=== PATIENT | male | born 1955 | race Caucasian/White ===

== ENCOUNTER 2020-08-02 12:03 | Emergency (ER) | payer OTHER, SELFPAY ==
[2020-08-02 12:05] VITALS: BP 136/93; PULSE 73; RESP 18; TEMP 36.4; O2SAT 96; BMI 24.3
[2020-08-02 12:11] VITALS: RESP 15
[2020-08-02 12:29] LABS: Basophils # 0.1 10^3/uL (0.0-0.1); Basophils % 0.7 %; Eosinophils # 0.1 10^3/uL (0.0-0.8); Eosinophils % 1.8 %; Hematocrit 53.9 % (42.0-52.0); Hemoglobin 17.5 g/dL (11.7-16.6); Lymphocytes # 0.9 10^3/uL (0.8-4.8); Lymphocytes % 12.8 %; Mean Corpuscular HGB Conc 32.5 g/dL (30.0-36.0); Mean Corpuscular Hemoglobin 29.8 pg (28.0-34.0); Mean Corpuscular Volume 91.7 fL (80-94); Mean Platelet Volume 10.1 fL (7.4-10.4); Monocytes # 0.5 10^3/uL (0.2-0.9); Neutrophils # 5.52 10^3/uL (1.8-7.7); Neutrophils % 77.4 %; Nucleated Red Blood Cells % 0 %; Platelet Count 243 10^3/cmm (130-400); Red Blood Count 5.88 10^6/uL (4.1-5.3); Red Cell Distribution Width 12.9 % (12.1-15.1); White Blood Count 7.1 10^3/uL (4.0-10.0)
[2020-08-02] MEDS: sodium chloride 0.9% 500 ML 999 ML IV ×2 (12:30→13:20)
--- NOTE | 2020-08-02 12:34 | CT_ITS ---
WS: [id number] CT ABDOMEN PELVIS TECHNIQUE: Contrast-enhanced CT of the abdomen and pelvis with coronal and sagittal reformatted image s. CLINICAL INFORMATION: abd pain COMPARISON: [id number] DLP: 1465.[address] scans at [facility] use at least one of these dose optimization techniques: automat ed exposure control; mA and/or kV adjustment per patient size (includes targeted exams where dose is matched to clinical indication); or iterative reconstruction. FINDINGS: Diffuse fatty infiltration of the liver. Normal portal vein and splenic vein. Normal gallbladder. Nor mal spleen. Lung bases are well aerated. Calcified granuloma left lower lobe. Normal GE junction. Adr enal glands are normal. Normal renal parenchymal enhancement. No hydronephrosis. Right renal cyst rachelle suring 2.1 CM. Normal portal vein and splenic vein. Normal caliber abdominal aorta. Prostate enlarge ment measuring 5.3 CM. Sigmoid diverticulosis with mild sigmoid colon thickening can be seen with early or mild diverticulit is. No evidence of small or large bowel obstruction. No free fluid in the abdomen or pelvis. Fat-cont aining left inguinal hernia. Incidental fat-containing umbilical hernia. CT/CT abdomen pelvis w con* [id number] IMPRESSION: 1. Slight sigmoid thickening can be seen with early or mild acute diverticulit is. 2. No evidence of small or large bowel obstruction. 3. No free fluid in the abdomen or pelvis. 4. Mild diffuse fatty infiltration liver. 5. Small right renal cyst measuring 2.1 CM. 6. Prostate enlargement. Recommend correlation PSA.
--- NOTE | 2020-08-02 12:42 | ED_ITS ---
HPI - Nausea/Vomiting/Diarrhea General: Chief complaint: Nausea/Vomiting/Diarrhea Stated complaint: N/V, UNABLE TO KEEP ANYTHING DOWN,[facility] Time Seen by Provider: 08/02/20 12:05 History of Present Illness: HPI Narrative: 64-year-old male comes in [facility] of nausea and vomiting that began yesterday. He states he vomits pretty much anything he attempts to eat. He denies any abdominal pain denies any diarrhea constipation no fever no dysuria urgency or frequency no hematuria. MD elicited complaint: nausea and vomiting Onset (ago): day(s) Description of vomiting: watery Associated nausea: Yes Associated abdominal pain: No Location of pain: None Exacerbating factors: none Relieving factors: none Associated symtoms: Reports anorexia and nausea; Denies altered mental status, anxiety, bloating, change in vision, chest pain, cough, diaphoresis, decreased urine output, dizziness, dysuria, epistaxis, fatigue, fecal incontinence, fevers/chills, headache(s), malaise, myalgias, numbness, palpitations, rash, short of breath, syncope, tenesmus, tinnitus or weakness Review of Systems Const: Denies: fatigue, malaise or diaphoresis Eyes: Denies: change in vision ENMT: Denies: tinnitus or epistaxis Card: Denies: chest pain, palpitations or syncope Resp: Denies: dyspnea, productive cough or non-productive cough GI: Reports: nausea; Denies: bloating or fecal incontinence : Denies: dysuria Skin/Breast: Denies: rash or pruritus Neuro: Denies: headache(s) or dizziness Psych: Denies: anxiety PFSH ED PFSH: Social History Smoking and tobacco status: former smoker Physical Exam Const: COMMON NORMALS: no acute distress EXAM LIMITATIONS: no altered mental status GENERAL APPEARANCE: cooperative and comfortable ORIENTATION/CONSCIOUSNESS: Yes awake, Yes oriented to person, Yes oriented to place and Yes oriented to time HENMT: COMMON NORMALS: normocephalic, atraumatic, hearing grossly normal bilaterally and external ears normal HEAD & SCALP: normocephalic and atraumatic EXTERNAL EAR: Yes external ears normal Neck/C-Spine: COMMON NORMALS: no JVD Resp: COMMON NORMALS: normal respiratory effort, No retractions, No use of accessory muscles and clear to auscultation bilaterally AUSCULTATION: clear to auscultation bilaterally Cardio: COMMON NORMALS: no JVD, regular rate, regular rhythm and No murmurs present (Cardio) RATE: regular rate RHYTHM: regular rhythm GI: COMMON NORMALS: Soft to palpation and No hepatosplenomegaly present AUSCULTATION: Yes normoactive bowel sounds PALPATION: Yes Soft to palpation, No Tenderness to palpation present (GI), No Guarding due to palpation present (GI) and Yes No hepatosplenomegaly present Extremity: COMMON NORMALS: normal to inspection, capillary refill normal, no clubbing, cyanosis or edema, no calf tenderness and no pedal edema Neuro: SENSORIUM/ORIENTATION: Yes oriented to person, Yes oriented to place and Yes oriented to time Skin: COMMON NORMALS: no rashes or lesions noted GENERAL SKIN EXAM: no rashes or lesions noted Course Vital Signs: Vital signs: Vital Signs Temperature 97.5 F L 08/02/20 12:05 Pulse Rate 80 08/02/20 15:01 Respiratory Rate 15 08/02/20 15:01 Blood Pressure 138/90 08/02/20 15:01 Pulse Oximetry 96 08/02/20 15:01 MDM - Nausea/Vomiting/Diarrhea MDM Narrative: Medical decision making narrative: CT showed mild diverticulitis is otherwise is unremarkable. Remainder of his labs are also unremarkable other than he is a little bit polycythemic. We will go ahead and start him on Cipro and Flagyl gave him ondansetron orally dissolving tablets. Clear liquid diet for 48 hours and advance if not improving may need to have EGD. Lab Data: Labs: Lab Results 08/02/20 08/02/20 08/02/20 Range/Units 12:20 12:20 13:02 WBC 7.1 (4.0-10.0) 10^3/ uL RBC 5.88 H (4.1-5.3) 10^6/u L Hgb 17.5 H (11.7-16.6) g/dL Hct 53.9 H (42.0-52.0) % MCV 91.7 (80-94) fL MCH 29.8 (28.0-34.0) pg MCHC 32.5 (30.0-36.0) g/dL RDW 12.9 (12.1-15.1) % Plt Count 243 (130-400) 10^3/c mm MPV 10.1 (7.4-10.4) fL Neut % (Auto) 77.4 % Lymph % (Auto) 12.8 % Callahan % (Auto) 7.0 % Eos % (Auto) 1.8 % Baso % (Auto) 0.7 % Neut # (Auto) 5.52 (1.8-7.7) 10^3/u L Lymph # (Auto) 0.9 (0.8-4.8) 10^3/u L Callahan # (Auto) 0.5 (0.2-0.9) 10^3/u L Eos # (Auto) 0.1 (0.0-0.8) 10^3/u L Baso # (Auto) 0.1 (0.0-0.1) 10^3/u L Nucleated RBC % (a uto) 0 % Nucleated RBCs # 0.0 /100WBC Sodium Cancelled 141 Potassium Cancelled 4.4 Chloride Cancelled 104 Carbon Dioxide Cancelled 27 Anion Gap Cancelled 14.4 BUN Cancelled 18 Creatinine Cancelled 0.9 GFR Calculation Cancelled 85.5 L Glucose Cancelled 93 Calculated Osmolal ity Cancelled 294 Calcium Cancelled 9.4 Total Bilirubin Cancelled 0.4 AST Cancelled 29 ALT Cancelled 34 Alkaline Phosphata se Cancelled 63 Creatine Kinase Cancelled 116 Total Protein Cancelled 6.7 Albumin Cancelled 4.3 Globulin Cancelled 2.4 Lipase Cancelled 17 Urine Color (Yellow) Urine Appearance (CLEAR) Urine pH (5-7) Ur Specific Gravit y (1.005-1.030) Urine Protein (Negative) Urine Glucose (UA) (Normal) Urine Ketones (Negative) Urine Blood (Negative) Urine Nitrate (Negative) Urine Bilirubin (Negative) Urine Urobilinogen (Negative) mg/dL Ur Leukocyte Ramona ase (Negative) 08/02/20 Range/Units 13:10 WBC (4.0-10.0) 10^3/ uL RBC (4.1-5.3) 10^6/u L Hgb (11.7-16.6) g/dL Hct (42.0-52.0) % MCV (80-94) fL MCH (28.0-34.0) pg MCHC (30.0-36.0) g/dL RDW (12.1-15.1) % Plt Count (130-400) 10^3/c mm MPV (7.4-10.4) fL Neut % (Auto) % Lymph % (Auto) % Callahan % (Auto) % Eos % (Auto) % Baso % (Auto) % Neut # (Auto) (1.8-7.7) 10^3/u L Lymph # (Auto) (0.8-4.8) 10^3/u L Callahan # (Auto) (0.2-0.9) 10^3/u L Eos # (Auto) (0.0-0.8) 10^3/u L Baso # (Auto) (0.0-0.1) 10^3/u L Nucleated RBC % (a uto) % Nucleated RBCs # /100WBC Sodium Potassium Chloride Carbon Dioxide Anion Gap BUN Creatinine GFR Calculation Glucose Calculated Osmolal ity Calcium Total Bilirubin AST ALT Alkaline Phosphata se Creatine Kinase Total Protein Albumin Globulin Lipase Urine Color Yellow (Yellow) Urine Appearance Clear (CLEAR) Urine pH 6.5 (5-7) Ur Specific Gravit y 1.020 (1.005-1.030) Urine Protein Neg (Negative) Urine Glucose (UA) Norm (Normal) Urine Ketones 1+ H (Negative) Urine Blood Neg (Negative) Urine Nitrate Negative (Negative) Urine Bilirubin Neg (Negative) Urine Urobilinogen 1 H (Negative) mg/dL Ur Leukocyte Ramona ase Negative (Negative) Discharge Plan Discharge Patient Disposition: Home Clinical Impression: Diverticulitis, Nausea & vomiting Condition: Stable Prescriptions: New ondansetron 4 mg tablet,disintegrating 4 mg PO Q6H PRN (Reason: nausea and vomiting) Qty: 20 RF: 0 Cipro 500 mg tablet 500 mg PO BID Qty: 20 RF: 0 Flagyl 500 mg tablet 500 mg PO BID 7 Days Qty: 14 RF: 0 No Action Prema-Marion Plus See Rx Instructions .ROUTE .COMPLEX RF: 0 albuterol sulfate 90 mcg/actuation Hfa Aerosol Inhaler 1 puff INHALATION DAILY RF: 0 albuterol sulfate See Rx Instructions .ROUTE .COMPLEX RF: 0 Discharge Orders: Discharge ED (Routine); Ordered 08/02/20 Ordered By: Du Mondragon Discharge Diet: Clear Liquid Discharge Activity: Increase activity as tolerated Patient Instructions: Opioid Safety Activity Restrictions/Additional Instructions: Clear liquid diet for the next 24 to 48 hours. Take small amounts of food with antibiotics such as crackers or toast. Follow-up with your primary care doctor. On the CT the radiologist mention enlarged prostate you should follow-up with this with your primary care doctor. Coding Level of Care Code ED Dental Detail Representative for Chg Fwd Exam Comprehensive
[2020-08-02 13:13] LABS: Add Urine Microscopic? NO; Charge for UA Resulting for Rev
[2020-08-02 13:17] LABS: Bilirubin Urine Neg (Negative); Blood Urine Neg (Negative); Glucose Urine UA Norm (Normal); Ketones Urine 1+ (Negative); Leukocyte Esterase Urine Negative (Negative); Nitrate Urine Negative (Negative); Protein Urine Neg (Negative); Urine Appearance Clear (CLEAR); Urine Color Yellow (Yellow); Urobilinogen Urine 1 mg/dL (Negative); pH Urine 6.5 (5-7)
[2020-08-02 13:31] LABS: Alanine Aminotransferase 34 U/L (0-41); Albumin Level 4.3 g/dL (3.5-5.2); Alkaline Phosphatase 63 IU/L (40-130); Anion Gap 14.4 (5-19); Aspartate Amino Transferase 29 U/L (0-40); Blood Urea Nitrogen 18 mg/dL (8-23); Calcium 9.4 mg/dL (8.5-10.5); Carbon Dioxide 27 mmol/L (22-29); Chloride 104 mmol/L (98-107); Creatine Phosphokinase 116 U/L (39-308); Globulin 2.4 g/dL (1.3-4.6); Glomerular Filtration Rate 85.5 mL/min (90-130); Glucose 93 mg/dL (65-115); Lipase 17 U/L (13-60); Osmolality Calculated 294 mOsm/kg (285-295); Potassium 4.4 mmol/L (3.5-5.1); Sodium 141 mmol/L (136-145); Total Bilirubin 0.4 mg/dL (0.15-1.2); Total Protein 6.7 g/dL (6.6-8.7)
[2020-08-02] MEDS: iohexol 300 mg/mL 100 mL Btl IV (13:43)
[2020-08-02 14:59] VITALS: BP 138/90; PULSE 80; RESP 15; O2SAT 96
[2020-08-02 15:01] VITALS: BP 138/90; PULSE 80; RESP 15; O2SAT 96
== END 2020-08-02 15:02 | disposition home or self-care (01) ==
PROVIDERS: Emergency Provider Family Medicine
DX: K57.92 Diverticulitis of intestine, part unspecified, without perforation or abscess without bleeding (principal); Z87.891 Personal history of nicotine dependence
CPT/HCPCS: 74177; 80053; 81003; 82550; 83690; 85025; 99284; J7040; Q9967

== ENCOUNTER → 2023-07-07 13:14 | Outpatient (BNVA) | payer OTHER, SELFPAY | PROVIDERS: Visit Provider Surgery | DX: K40.90 Unilateral inguinal hernia, without obstruction or gangrene, not specified as recurrent (principal); D58.2 Other hemoglobinopathies | CPT/HCPCS: 36415; 83036; 99204 ==

== ENCOUNTER 2023-07-27 06:23 | Day surgery (SDC) | payer OTHER, SELFPAY ==
[2023-07-27] VITALS (12 sets, daily range): BP systolic 99–130; BP diastolic 66–86; PULSE 50–77; RESP 15–20; TEMP 36.1–36.4; O2SAT 94–98; BMI 23.8
--- NOTE | 2023-07-27 05:51 | P.HPUD_ITS ---
Surgery/Procedure H&P Update DATE OF PROCEDURE: July 27, 2023 DATE H&P PERFORMED: 07/07/23 H&P UPDATE INFORMATION: I have reviewed H&P completed within last 30 days, I have examined patient prior to procedure, No changes to prior documentation and H&P is in [facility] [place] [facility] EMR on date indicated PLANNED PROCEDURE: Operation Date: 07/27/23 08:10 Proposed Procedures p Laparoscopic Inguinal Hernia Repair w/Mesh/ [place] [id number], K46.9(Left) - Mac Erickson MD
[2023-07-27] MEDS: sodium chloride 0.9% 1,000 ML 30 ML IV (07:23)
[2023-07-27 07:25] LABS: Glucose Point of Care 112 mg/dL (70-110)
[2023-07-27] MEDS: ceFAZolin 2,000 MG in sodium chloride 0.9% (plus) 50 ML 100 MG IV (08:44)
--- NOTE | 2023-07-27 09:16 | ANES.PREANE2 ---
Pre-Anesthetic Assessment Height/Weight: Height 1.78 m Weight 75.296 kg Temp Pulse Resp BP Pulse Ox O2 Del Method 97.3 F L 61 18 130/76 98 Room Air 07/27/23 06:50 07/27/23 06:50 07/27/23 06:50 07/27/23 06:50 07/27/23 06:50 07/27/23 06:50 Operation Date: 07/27/23 08:10 Proposed Procedures p Laparoscopic Inguinal Hernia Repair w/Mesh/ [place] open [id number], K46.9(Left) - Mac Erickson MD Familial anesthetic complications: None Was Beta Vasu taken within 24 hours: N/A Was Clonidine taken within 24 hours: N/A Last intake: Intake Last Liquid Date 07/26/23 Last Liquid Time 22:30 Last Solid Date 07/26/23 Last Solid Time 22:30 Social Tobacco and No alcohol Exam alert, oriented x 3 and regular rate & rhythm Airway Submandibular: within normal limits Cervical ROM: within normal limits Mallampati: Class II Dentition: chipped (lower arch poor dentitioin) and false (upper) Pulmonary Chronic Obstructive Pulmonary Disease GI Gastroesophageal Reflux Disease Anesthetic Plan ASA status: 3 Anesthesia: General Medications/Allergies Home Medications Medication Instructions Recorded Confirmed Last Taken Type aspirin 325 mg tablet,delayed 325 mg PO DAILY 07/24/23 07/24/23 07/24/23 History release cetirizine 10 mg tablet 10 mg PO DAILY 07/24/23 07/24/23 07/27/23 04:30 History [id number] 1 tab PO DAILY 07/24/23 07/24/23 07/26/23 History tablet (Multivitamin 50 Plus tablet) omeprazole 20 mg delayed 20 mg PO DAILY 07/24/23 07/24/23 07/26/23 History release,disintegrating tablet fluticasone 100 mcg-salmeterol 50 1 inh inhalation BID 07/27/23 07/27/23 07/27/23 04:30 History mcg/dose blistr powdr for inhalation (Wixela Inhub) Allergies Allergy/AdvReac Type Severity Reaction Status Date / Time morphine Allergy ADR-Confusi Verified 07/27/23 06:49 on codeine AdvReac ADR-Confusi Verified 07/24/23 10:50 on Current Medications Generic Name Dose Route Start Last Admin Trade Name Freq PRN Reason Stop Dose Admin Sodium Chloride 1,000 mls @ 30 mls/hr 07/27/23 06:30 07/27/23 07:23 Sodium Chloride 0.9% IV 07/28/23 06:29 30 mls/hr .Q24H DELANEY Administration PFSH Anesthesia Social History Smoking and tobacco/nicotine status: former use of tobacco/nicotine Data Anesthesia Cardiac Studies: No Data to Display
[2023-07-27] MEDS: lidocaine-epi 1% PF 1:200,000 30 mL SDV 10 ML INJECTION (09:29)
[2023-07-27] MEDS: BUPivacaine 0.25% INJ 10 mL INJECTION (09:29)
--- NOTE | 2023-07-27 10:17 | PM.OP ---
Operative Report Date of procedure: July 27, 2023 Pre-op diagnosis: Left inguinal hernia Post-op diagnosis: Left inguinal hernia, indirect, lipoma of the cord. Post-op findings: There was a large left inguinal hernia that was indirect and also a large lipoma of the cord. Significant scar tissue noted between the hernia sac and the cord structures indicating likely a chronic component for this hernia Procedure done: Laparoscopic left inguinal hernia repair with mesh Implants: Large left-sided Bard 3D max mesh Surgeon: Mac Erickson MD Wastewater Treatment Operator: GAIL OR Staff Estimated blood loss: 5 Complications: none apparent Brief History: 67-year-old male who presented to my office with a left inguinal hernia for the possibility of repair. After discussion of all risk benefits and documented my preop note we decided to proceed. Procedure: Patient was brought into the OR, he was placed in a supine position. General anesthesia was given. The abdomen was prepped and draped in the usual sterile fashion. Timeout was conducted. A 1.5 cm infraumbilical incision was made. Incision was deepened until the right rectus sheath was identified. The anterior rectus sheath was then opened exposing the rectus muscle, the rectus muscle was retracted laterally exposing the retrorectus space. I then advanced the Spacemaker into the retrorectus space up to the level of the pubis. Under direct visualization the balloon was inflated creating the preperitoneal space. Balloon was then removed and replaced with a 12 mm balloon trocar and insufflation was started. Additional 5 mm trocars were placed in the suprapubic and infraumbilical positions under direct visualization. I started by dissecting the fatty tissue around the pubic bone until the left femoral vein was identified, no evidence of femoral hernia was noted no evidence of direct hernia was noted. I then proceeded to bluntly dissect the lateral space of Borgess, it was immediately apparent that the large left indirect inguinal hernia was present as well as a lipoma of the cord. I then consented MIF for some reducing the hernia sac and carefully dissecting these from the cord structures. I was able to completely dissected but the dissection was challenging due to significant adhesions from the sac to the cord structures indicating chronicity of the hernia. Due to the septations a small hole was made in the hernia sac thus creating a pneumoperitoneum. Working space was preserved during the case. After reduction of the sac I proceeded to reduce a large cord lipoma. I then placed a large left-sided 3D max mesh the mesh was seen laying in adequate position covering the indirect direct and femoral spaces and extending to the lateral direction and medially to the level of the symphysis pubis. I fixed the mesh with 1 tacked to the Juan Antonio's ligament. The space was desufflated and the mesh was seen laying in a very good position. Trocars were then removed. Since there was evidence of pneumoperitoneum during the procedure I decided to make a small opening into the posterior rectus sheath with a Metzenbaum scissor and the pneumoperitoneum was evacuated, this opening was then closed with #0 Vicryl. I then proceeded to close the anterior rectus sheath with #0 Vicryl. The wounds were then closed in layers using #3-0 Vicryl for the subcutaneous tissue and #4 Monocryl for the skin. Dermabond was then applied. At the end of the procedure all counts were correct, the patient tolerated well the procedure and was transferred to the PACU in stable condition.
--- NOTE | 2023-07-27 15:55 | ANE.PACU2 ---
Inpatient post-anesthesia follow up: Airway intact: Yes Vital signs: Temperature 97.6 F Pulse Rate 59 Respiratory Rate 18 Blood Pressure 99/84 Pulse Oximetry 96 Oxygen Delivery Me thod Room Air Oxygen Flow Rate Fraction of Inspir ed Oxygen Hydration adequate: Yes Nausea and vomiting: No Pain level: 3 Mental status: Baseline
== END 2023-07-27 11:50 | disposition home or self-care (01) ==
PROVIDERS: PCP Family Medicine; Visit Provider Surgery
PROC: (CPT 49650; principal; 2023-07-27 08:00)
DX: K40.90 Unilateral inguinal hernia, without obstruction or gangrene, not specified as recurrent (principal); D17.6 Benign lipomatous neoplasm of spermatic cord; J44.9 Chronic obstructive pulmonary disease, unspecified; K21.9 Gastro-esophageal reflux disease without esophagitis; Z79.82 Long term (current) use of aspirin; Z87.891 Personal history of nicotine dependence
CPT/HCPCS: 49505; 36416; 51702; 82962; C1781; J0131; J0690; J1100; J2405; J2704; J2710; J3010; J3490; J7030

== ENCOUNTER → 2023-08-12 12:56 | Outpatient (BNVA) | payer OTHER, SELFPAY | PROVIDERS: PCP Family Medicine; Visit Provider Surgery | DX: Z98.890 Other specified postprocedural states (principal); Z87.19 Personal history of other diseases of the digestive system | CPT/HCPCS: 99024 ==